=== PATIENT | male | born 1945 | race Caucasian/White ===

== ENCOUNTER 2018-12-29 15:12 | Emergency (ER) | payer MEDICARE, BC ==
[~2018-12-29] VITALS: Ht 177.8 cm; Wt 68.0 kg
[2018-12-29 15:54] LABS: BASOPHILS # (AUTO) 0.1 X10'3 (0-0.2); BASOPHILS % (AUTO) 1.2 % (0-1); EOSINOPHILS # (AUTO) 0.1 X10'3 (0-0.9); EOSINOPHILS % (AUTO) 0.7 % (0-6); HEMATOCRIT 34.1 % (42.0-52.0); HEMOGLOBIN 11.7 g/dl (14.0-17.9); LYMPHOCYTES # (AUTO) 1.7 X10'3 (1.1-4.8); LYMPHOCYTES % (AUTO) 17.6 % (21-51); MEAN CORPUSCULAR HEMOGLOBIN 32.6 PG (27.0-31.0); MEAN CORPUSCULAR HGB CONC 34.4 g/dL (33.0-36.5); MEAN CORPUSCULAR VOLUME 94.6 FL (78-98); MEAN PLATELET VOLUME 7.2 FL (7.4-10.4); MONOCYTES # (AUTO) 0.9 X10'3 (0-0.9); MONOCYTES % (AUTO) 9.7 % (2-12); NEUTROPHILS # (AUTO) 6.7 X10'3 (1.8-7.7); NEUTROPHILS % (AUTO) 70.8 % (42-75); PLATELET COUNT 376 X10'3 (140-440); RED CELL DISTRIBUTION WIDTH 14.1 % (11.5-14.5); WHITE BLOOD COUNT 9.5 X10'3 (4.5-11.0)
--- NOTE | 2018-12-29 15:54 | NUR ---
PT IS DENYING ANY SI AT THIS TIME, PT REPORTS FEELING DEPRESSED ABOUT HIS AGE AND HAVING TO COME TO THE HOSPITAL. PT HAS NO HX OF SUICIDE ATTEMPTS.
[2018-12-29 16:09] LABS: ALANINE AMINOTRANSFERASE 124 U/L (12-78); ALBUMIN 2.8 G/DL (3.4-5.0); ALBUMIN/GLOBULIN RATIO 0.9 (1.1-1.5); ALKALINE PHOSPHATASE 133 IU/L (46-116); ANION GAP 4 (8-16); ASPARTATE AMINO TRANSFERASE 24 U/L (10-37); BILIRUBIN,TOTAL 0.6 MG/DL (0.1-1.0); BLOOD UREA NITROGEN 15 MG/DL (7-18); BUN/CREATININE RATIO 19.5 (5.4-32.0); CALCIUM 8.3 MG/DL (8.5-10.1); CHLORIDE 99 MMOL/L (99-107); CREATININE 0.77 MG/DL (0.60-1.10); GLUCOSE 367 MG/DL (70-104); POTASSIUM 3.6 MMOL/L (3.5-5.1); SODIUM 134 MMOL/L (135-145); TOTAL CARBON DIOXIDE 31.3 MMOL/L (24-32); eGFR > 90 ML/MIN
[2018-12-29 16:15] LABS: INR 1.1 INR; PARTIAL THROMBOPLASTIN TIME 28 SECONDS (22-32)
[2018-12-29] MEDS ORDERED: morphine 4 MG/ML inj SYRINge IV ONE (16:45)
[2018-12-29] MEDS ORDERED: ondansetron/PF 4mg/2ml inj IV ONE (16:45)
[2018-12-29] MEDS ORDERED: HYDROcodone/acetaminophen 5mg/325mg tablet PO ONE (16:50)
--- NOTE | 2018-12-29 17:01 | NUR ---
PAGED FOR CASE MANAGMENT [id number]
--- NOTE | 2018-12-29 17:24 | NUR ---
patient on bed awake,not on distress.
[2018-12-29] MEDS ORDERED: HYDR-4353 PO (18:42)
[2018-12-29 18:55] VITALS: BP 120/74
== END 2018-12-29 18:57 | disposition home or self-care (01) ==
LOC: ER 15:13
DX: J93.9 Pneumothorax, unspecified (principal); Z79.899 Other long term (current) drug therapy
CPT/HCPCS: 36415; 71045; 80053; 84484; 85025; 85610; 85730; 93005; 99284